=== PATIENT | female | born 1970 | race Caucasian/White ===

== ENCOUNTER 2016-06-29 14:57 | Emergency (ER) | payer SELFPAY ==
[~2016-06-29 14:57] MED LIST: AUGMENTIN 875-1 EAC1 PO; BACTRIM DS TAB1 EACH PO; CEPHALEXIN500 M1 PO; MOTRIN IB200 M1 PO; NORCO 325 MG-51 TA1 PO; ULTRAM50 M1 PO
[2016-06-29] MEDS ORDERED: AMOXICILLIN875 MG PO (16:10)
[2016-06-29] MEDS ORDERED: NORCO 325 MG-51 TA1 PO (16:10)
[2016-06-29 16:23] VITALS: BP 127/66
== END 2016-06-29 16:24 | disposition home or self-care (01) ==
LOC: ED 14:57
DX: S02.5XXA Fracture of tooth (traumatic), initial encounter for closed fracture (principal); X58.XXXA Exposure to other specified factors, initial encounter

== ENCOUNTER 2017-03-13 06:08 | Emergency (ER) | payer SELFPAY ==
[~2017-03-13] VITALS: Ht 15.2 cm; Wt 81.8 kg
[~2017-03-13 06:08] MED LIST changes: +AMOXICILLIN875 MG PO
[2017-03-13] MEDS ORDERED: TUSSIONEX PENN115 ML PO (06:58)
[2017-03-13] MEDS ORDERED: TESSALON PERLE100 M1 PO (06:58)
[2017-03-13] MEDS ORDERED: AUGMENTIN 875-1 EAC1 PO (06:58)
[2017-03-13 07:03] VITALS: BP 142/86
== END 2017-03-13 07:03 | disposition home or self-care (01) ==
LOC: ED 06:08
DX: J01.40 Acute pansinusitis, unspecified (principal)

== ENCOUNTER 2017-04-05 21:32 | Emergency (ER) | payer SELFPAY ==
[~2017-04-05] VITALS: Ht 167.6 cm; Wt 81.8 kg
[~2017-04-05 21:32] MED LIST changes: +TESSALON PERLE100 M1 PO; +TUSSIONEX PENN115 ML PO
[2017-04-05] MEDS ORDERED: AMOXICILLIN875 MG PO (23:28)
[2017-04-05] MEDS ORDERED: PERCOCET 325 MG1 TA2 PO (23:31)
[2017-04-05 23:41] VITALS: BP 140/90
== END 2017-04-05 23:41 | disposition home or self-care (01) ==
LOC: ED 21:32
DX: K08.89 Other specified disorders of teeth and supporting structures (principal); K03.81 Cracked tooth; R68.84 Jaw pain; R51 Headache; H92.02 Otalgia, left ear

== ENCOUNTER 2017-09-30 19:12 | Emergency (ER) | payer SELFPAY ==
[~2017-09-30] VITALS: Ht 167.6 cm; Wt 79.5 kg
[~2017-09-30 19:12] MED LIST changes: +PERCOCET 325 MG1 TA2 PO
[2017-09-30] MEDS ORDERED: NORCO 325 MG-51 TA1 PO (19:55)
[2017-09-30] MEDS ORDERED: AMOXIL500 M1 PO (19:57)
[2017-09-30 20:23] VITALS: BP 145/87
== END 2017-09-30 20:23 | disposition home or self-care (01) ==
LOC: ED 19:12
DX: K08.89 Other specified disorders of teeth and supporting structures (principal); K08.530 Fractured dental restorative material without loss of material

== ENCOUNTER 2017-12-15 21:25 | Emergency (ER) | payer SELFPAY ==
[~2017-12-15] VITALS: Ht 167.6 cm; Wt 81.8 kg
[~2017-12-15 21:25] MED LIST changes: +AMOXIL500 M1 PO
[2017-12-15 21:55] LABS: BASO # 0.1 (0.02-0.10); EOS # 0.5 (0.04-0.40); EOS % 4.3 % (1.0-5.0); HEMATOCRIT 32.2 % (37.0-47.0); HEMOGLOBIN 9.7 g/dL (12.5-16.0); LYMPH# 2.3 (1.50-4.00); MEAN CORPUSCULAR HGB CONC 30 g/dL (33-37); MEAN PLATELET VOLUME 9.2 fl (7.4-10.4); MONO # 0.6 (0.20-0.80); NEU # 7.2 (1.40-6.50); RED BLOOD COUNT 4.86 M/mm3 (4.10-5.30); RED CELL DISTRIBUTION WIDTH 17.5 % (11.5-14.5); WHITE BLOOD COUNT 10.7 K/mm3 (4.8-10.8)
[2017-12-15 21:56] LABS: MEAN CELL VOLUME 66 fl (78-100); MEAN CORPUSCULAR HEMOGLOBIN 20 pg (27-31); PLATELET COUNT 506 K/mm3 (130-400)
[2017-12-15] MEDS ORDERED: PREDNISONE20 M1 PO (22:29)
[2017-12-15 22:40] VITALS: BP 160/74
== END 2017-12-15 22:40 | disposition home or self-care (01) ==
LOC: ED 21:25
PROVIDERS: Family Medicine
DX: J45.909 Unspecified asthma, uncomplicated (principal); D64.9 Anemia, unspecified; K21.9 Gastro-esophageal reflux disease without esophagitis

== ENCOUNTER → 2018-01-28 | Outpatient (CLI) | payer BC ==
[~2018-01-28] MED LIST changes: +PREDNISONE20 M1 PO
== END ==
LOC: LAB 16:01
DX: K04.7 Periapical abscess without sinus (principal)